=== PATIENT | female | born 1990 | race Caucasian/White ===

== ENCOUNTER 2017-02-15 00:07 | Inpatient (IN) | payer OTHER ==
[2017-02-15] MEDS ORDERED: Lidocaine 1% 50 ML MDV INJECT PRN (00:55)
[2017-02-15] MEDS ORDERED: Nalbuphine 20 MG/1 ML Amp IVPUSH PRN (00:55)
[2017-02-15] MEDS ORDERED: Sodium Chloride 0.9% 10 ML Syringe FLUSH PRN ×2 (00:55→09:34)
[2017-02-15] MEDS ORDERED: Oxytocin/Lactated Ringers 10 UNIT/1,000 ML BAG IV SCH ×2 (01:00→06:45)
[2017-02-15] MEDS: Lactated Ringers 1,000 ML IV SCH ×3 (03:30→06:21)
[2017-02-15] MEDS ORDERED: Bupivacaine/fentaNYL/NS 100 ML Bag EPIDUR SCH (05:15)
--- NOTE | 2017-02-15 05:15 | PCM.PREANE ---
Preanesthetic Assessment - Procedure Proposed Procedure: Continuous Labor Epidural - Anesthesia/Transfusion/Family Hx Anesthesia History: Prior Anesthesia Reaction Other Type of Anesthesia Reaction Comment: Pt states "was hard to wake up after 2008 surgery"Possible high spinal with - Review of Systems General: No Symptoms Pulmonary: No Symptoms Cardiovascular: Lightheadedness (some with this ) Gastrointestinal: No symptoms Neurological: Dizziness (with this sometimes) Other: Reports: None - Physical Assessment O2 Sat by Pulse Oximetry: 100 Respiratory Rate: 18 Vital Signs: Last Vital Signs Temp 36.3 C 02/15/17 00:47 Pulse 93 02/15/17 00:47 Resp 18 02/15/17 00:47 BP 97/61 02/15/17 00:47 Pulse Ox Height: 1.63 m Weight: 85.275 kg ASA Class: 2 Mental Status: Alert & Oriented x3 Dentition: Reports: Broken Tooth/Teeth (chip upper front) Thyro-Mental Finger Breadths: 3 Mouth Opening Finger Breadths: 3 ROM/Head Extension: Full Lungs: Clear to auscultation, Normal respiratory effort Cardiovascular: Regular Rate, Regular Rhythm, No Murmurs - Lab Values: Laboratory Last Values WBC 10.34 K/mm3 (3.98-10.04) H 02/15/17 01:18 RBC 4.50 M/mm3 (3.98-5.22) 02/15/17 01:18 Hgb 12.2 gm/L (11.2-15.7) 02/15/17 01:18 Hct 37.2 % (34.1-44.9) 02/15/17 01:18 MCV 82.7 fl (79.4-94.8) 02/15/17 01:18 MCH 27.1 pg (25.6-32.2) 02/15/17 01:18 MCHC 32.8 g/dl (32.2-35.5) 02/15/17 01:18 RDW Std Deviation 41.6 fL (36.4-46.3) 02/15/17 01:18 Plt Count 346 K/mm3 (182-369) 02/15/17 01:18 MPV 9.6 fl (9.4-12.3) 02/15/17 01:18 Neut % (Auto) 71.9 % (34.0-71.1) H 02/15/17 01:18 Lymph % (Auto) 17.7 % (19.3-51.7) L 02/15/17 01:18 Wayne % (Auto) 8.6 % (4.7-12.5) 02/15/17 01:18 Eos % (Auto) 1.4 (0.7-5.8) 02/15/17 01:18 Baso % (Auto) 0.2 % (0.1-1.2) 02/15/17 01:18 Neut # (Auto) 7.44 K/mm3 (1.56-6.13) H 02/15/17 01:18 Lymph # (Auto) 1.83 K/mm3 (1.18-3.74) 02/15/17 01:18 Wayne # (Auto) 0.89 K/mm3 (0.24-0.36) H 02/15/17 01:18 Eos # (Auto) 0.14 K/mm3 (0.04-0.36) 02/15/17 01:18 Baso # (Auto) 0.02 K/mm3 (0.01-0.08) 02/15/17 01:18 Blood Type A POSITIVE 02/15/17 01:18 Gel Antibody Screen Negative 02/15/17 01:18 - Allergies Allergies/Adverse Reactions: Allergies Allergy/AdvReac Type Severity Reaction Status Date / Time No Known Allergies Allergy Verified 10/11/14 00:43 - Acknowledgements Anesthesia Type Planned: Epidural Pt an Appropriate Candidate for the Planned Anesthesia: Yes Alternatives and Risks of Anesthesia Discussed w Pt/Guardian: Yes Pt/Guardian Understands and Agrees with Anesthesia Plan: Yes PreAnesthesia Questionnaire HEENT History: Reports: None Genitourinary History: Reports: None 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: - Past Surgical History HEENT Surgical History: Reports: Oral Surgery Other HEENT Surgeries/Procedures: wisdom teeth 2008 Female Surgical History: Reports: Section Other Female Surgeries/Procedures: 2011 - SUBSTANCE USE Smoking Status *Q: Current Every Day Smoker (1 pack per week) Tobacco Use Within Last Twelve Months: Cigarettes Second Hand Smoke Exposure: Yes Days Per Week of Alcohol Use: 0 Recreational Drug Use History: No - HOME MEDS Home Medications: Home Meds Vits #93/Iron Fum/FA [ Formula Tablet] 1 tab PO DAILY 05/15/14 [History] - CURRENT (IN HOUSE) MEDS Current Meds: Current Medications Lactated Ringer's (Ringers, Lactated) 1,000 mls @ 100 mls/hr IV ASDIRECTED [facility] Last Admin: 02/15/17 04:58 Dose: 125 mls/hr Oxytocin/Lactated Ringer's (Pitocin In Lr 10 Units/1,000 Ml) 10 unit in 1,000 mls @ 100 mls/hr IV ASDIRECTED [facility] Lidocaine HCl (Xylocaine 1%) 50 ml INJECT ASDIRECTED PRN PRN Reason: Other Nalbuphine HCl (Nubain) 10 mg IVPUSH Q2H PRN PRN Reason: Pain (moderate 4-6) Sodium Chloride (Saline Flush) 10 ml FLUSH ASDIRECTED PRN PRN Reason: Keep Vein Open
[2017-02-15] MEDS ORDERED: Aluminum Hydroxide/Magnesium Hydroxide/Simethicone Susp 30 ML Cup PO ONE (06:40)
--- NOTE | 2017-02-15 07:38 | HP ---
DATE OF ADMISSION: 02/15/2017 ADMISSION DIAGNOSIS: A 39 and 4/7th week intrauterine , active labor, history of previous section with desire for vaginal after . HISTORY OF PRESENT ILLNESS: The patient is a 26-year-old 3, para 2-0-0-2 white female who wishes to do a natural labor after having 1 successful . Her first was delivered by section for failure to progress. She at this time is in labor azam approximately every 3 minutes, moderate intensity, and has dilated since her last evaluation clinic. heart tones are generally reassuring with good variability and some early decelerations. The , it risks, benefits, alternatives of care including a repeat section are all discussed in detail with the patient. She wishes to proceed and is willing to go through the cautionary preparation steps in case of emergent section is needed. She has signed a consent for and has signed a consent for repeat section. 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 She has a history of very irregular cycles coming anywhere from every 30 to every 45 days. Her last period of 05/08/2016 was definite, but because of the irregularity of cycle, the MICHELE is set by 1st ultrasound. She was not using any control at the time of conception. She had menarche at age 13. Cycles last approximately 5 days. Her last delivery includes the followin. Male infant born 06/25/2011 at 39 weeks gestational age after 10 hours of labor-7 pounds, 2 ounces-primary section done in [place], [place] for failure to progress. Child's name is Pedro. 2. Female infant born 10/[birth year]/2014 at 40 and 2/7th weeks gestational age after 72 hours of labor-8 pounds and 7 ounces-normal spontaneous vaginal delivery- in [place]-child's name is Cheng Mann. COURSE: The patient declined genetic testing. Her [place] Depression Screen Score on 09/26/2016 was 0-normal. She is group B strep negative. She plans to breastfeed. She is interested in an epidural in Labor and Delivery. Tdap was given on 12/08/2014. The patient did have bacterial vaginosis during the course of her care. Her course was regular starting with a 1st visit on 07/20/2016 at 9 and 4/7th weeks. She was seen on a very regular basis. Her weight decreased from 197 pounds at first leonardo visit to 188 pounds. Her fundal height growth was appropriate and her vital signs were stable. On last evaluation in clinic, she was 3 cm, 90% effaced, very soft, -1, midposition. LABORATORY DATA: Laboratory testing in shows blood to be A+ with a negative antibody screen. First labs showed a hemoglobin of 14.2 and a platelet count of 238,000. She is rubella immune. RPR is nonreactive. Urine culture was negative. Hepatitis B and HIV assays were negative. Chlamydia and gonorrhea were both negative. Second trimester testing showed a hemoglobin of 11.9, at which time, she was started on iron therapy. Her platelets were 239,000. Her 1 hour glucose tolerance test was 80-normal. Group B strep screen was negative. ALLERGIES: None. CURRENT MEDICATIONS: 1. vitamins 1 daily. 2. Ferrous sulfate daily. PAST MEDICAL HISTORY: 1. Vaginal delivery- 10/13/2014. 2. Abnormal Pap smear in 2011, which was normal on repeat. PAST SURGICAL HISTORY: 1. 2011 for [id number]-[id number] and nonreassuring heart tones. 2. [place] teeth extraction. FAMILY HISTORY: Paternal grandmother with some type of degenerative muscle disease. Maternal grandmother otherwise without -related problems. There are twins reported in family. Mother's history otherwise is not well-known and father is alive and well. No bleeding, blood clotting, or anesthesia problems noted other than the patient had a slow time waking up after anesthesia. SOCIAL HISTORY: The patient is . is Julian Galdamez. The patient is a [id number] mom. She lives in [place], [place]. She does not use any significant amounts of alcohol, drugs, or tobacco. REVIEW OF SYSTEMS: SKIN: Negative. CARDIOVASCULAR: No chest pain or exercise intolerance. RESPIRATORY: No shortness of breath, infectious symptoms, or asthma at this time. 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 GI: Negative. : Findings consistent with with normal fundal height growth. MUSCULOSKELETAL: Some edema noted in on occasion. NEUROLOGIC: Negative. PHYSICAL EXAMINATION: VITAL SIGNS: On evaluation, 02/13/2017, the patient's blood pressure is 112/70, weight was 188, heart rate was 142, her height is 5 feet, 4 inches, pregravid weight was 205 pounds-body mass index was 35.2. GENERAL: The patient is a well-developed, well-nourished, pleasant female, stated age, in no acute distress. She is alert, oriented x2 and appears to be reasonable historian. SKIN: Warm, dry, without lesions. LUNGS: Clear with good breath sounds in all lung wiggins. CARDIOVASCULAR: Shows regular rate and rhythm without murmurs. LUNGS: Clear with good breath sounds in all lung wiggins. BREASTS: Exam is deferred having been done at first visit and found to be normal. ABDOMEN: Protuberant with with fundal height of 39 cm on last evaluation. : Cervix is 3 cm/90% effaced/very soft/-1 and midposition on last evaluation, the patient now has dilated to 4 to 5 cm. EXTREMITIES: Show no significant edema. NEUROLOGICAL: Exam is within normal limits. ASSESSMENT: 1. Term intrauterine at 39 and 4/7th weeks gestational age by early ultrasound dating. 2. History of previous section for [id number]-md-dwkvhqtk and nonreassuring heart tones-now has successfully vaginal after and desires to vaginal after with this . 3. Group B strep screen is negative. 4. The patient wishes to use epidural in Labor and Delivery. 5. Tdap is up-to-date. 6. The patient declined genetic testing. 7. Blood is A+. PLAN: 1. Anticipate delivery. 2. The attempt, its risks, benefits, precautions to be taken and potential intervention if abnormalities occur all discussed in detail with the patient. She appears to understand. It has been reviewed with her approximately 2-3 occasions during her course and the patient has now signed a consent for and for repeat section. 3. labs to be obtained including CBC, type and screen. 4. Near continuous monitoring to be undertaken during labor. 5. Anesthesia and Surgery have been alerted that the patient is in labor as a candidate. 6. Epidural p.r.n. 7. Support decision. MMCOX MONETT /[id number]
[2017-02-15] MEDS ORDERED: Bupivacaine 0.5% 30 ML SDV ONE (08:00)
[2017-02-15] MEDS ORDERED: Citric Acid/Sodium Citrate Solution 30 ML Cup PO ONE (08:02)
[2017-02-15] MEDS ORDERED: Metoclopramide 10 MG/2 ML SDV IVPUSH ONE (08:02)
[2017-02-15] MEDS ORDERED: ceFAZolin 2 GM in Premix Bag 1 BAG IV ONE (08:02)
[2017-02-15] MEDS ORDERED: Metoclopramide 10 MG/2 ML SDV ONE (08:02)
[2017-02-15] MEDS ORDERED: Citric Acid/Sodium Citrate Solution 30 ML Cup ONE (08:03)
--- NOTE | 2017-02-15 08:04 | PCM.SN ---
- Free Text/Narrative Note: The patient has been laboring since approximately midnight here in the hospital. Her contraction pattern was suboptimal. Patient is having early decelerations but with good variability. Good return to baseline. The contraction pattern picked up with Pitocin 1 milliunit to achieve a more optimal pattern. Patient's decelerations that appeared to be lengthening and with occasional late components. At this time feel that a model labor necessary to move her from the 7-8 cm dilation that she is to complete and delivered may be more than the baby will tolerate. I discussed with her repeat section. Procedure, risks, benefits, follow-up and alternatives discussed. She appears understanding and wishes to proceed. She is previously signed a consent. We'll proceed to emergent section.
[2017-02-15] MEDS ORDERED: Oxytocin 10 Units/1 ML SDV ONE (08:16)
[2017-02-15] MEDS ORDERED: ceFAZolin 1 GM Vial ONE (08:16)
[2017-02-15] MEDS ORDERED: Ondansetron 4 MG/2 ML SDV ONE (08:16)
[2017-02-15] MEDS ORDERED: Phenylephrine/Normal Saline 100 MCG/ML 10 ML Syringe ONE (08:24)
[2017-02-15] MEDS ORDERED: Lactated Ringers 1,000 ML ONE ×2 (08:33→08:44)
[2017-02-15] MEDS ORDERED: Ketorolac 30 MG/ML SDV ONE (08:33)
[2017-02-15] MEDS ORDERED: Morphine PF 10 MG/10 ML SDV ONE (08:34)
[2017-02-15] MEDS ORDERED: ePHEDrine/Normal Saline 25 MG/5 ML Syringe ONE (08:50)
[2017-02-15] MEDS ORDERED: Lidocaine 2% with EPINEPHrine 1:200,000 20 ML SDV ONE (08:50)
--- NOTE | 2017-02-15 09:02 | PCM.OPNOTE ---
- General Post-Op/Procedure Note Date of Surgery/Procedure: 02/15/17 Operative Procedure(s): Repeat lower uterine segment transverse section through Pfannenstiel skin incision Findings: Baby is in vertex presentation. Uterus tubes and ovaries consistent with normal term anatomy. Amniotic fluid was clear. Some scarring noted in the anterior lower uterine segment and anterior abdominal wall areas. Pre Op Diagnosis: 39 week intrauterine , nonreassuring heart tones, history of previous section Post-Op Diagnosis: Same with delivery of viable, 7 lbs. 10 oz., female with Apgars of 9 and 9 at 00 21 hours on 02/15/2017. Anesthesia Technique: Epidural Other Anesthesia Type: Marcaine 0.5%20 mLlocal Primary Surgeon: Caio Parson Secondary Surgeon: Troy Tan Anesthesia Provider: Nadine Bartlett Fluid Replacement, Intraop: 800 Output, Urine Amount: 250 EBL in mLs: 500 Drain/Tube Comments:: Indwelling bladder catheter Complications: None Condition: Good Free Text/Narrative:: Intake & Output 02/14/17 02/15/17 02/15/17 22:59 06:59 14:59 Intake Total 1000 Balance 1000 Surgery duration: 31 minutes Patient was transferred the room and placed in a sitting position. After confirmation of adequate anesthesia patient was placed in a supine position with a wedge under her right side to facilitate left lateral positioning. The patient was prepped and draped in usual fashion after Lees catheter was already placed . The anesthetic was checked and found to be adequate. The Pfannenstiel skin incision was then made carried down to skin subcutaneous and fascial layers. The fascia was then undermined superiorly and inferiorly to allow for adequate operating room the recti muscles midline and preperitoneal fat was bluntly dissected. Peritoneal cavity was entered longitudinally. The vesicouterine peritoneum was then incised transversely and bladder flap was developed. Myometrium was incised transversely to the level of the amniotic sac. This incision was extended bilaterally in a blunt fashion. The anesthetic was then ruptured resulting clear amniotic fluid. A hand is placed and low uterine segment and the baby's head was brought forth through the incision. The baby was completely delivered using fundal pressure in a routine fashion. The nose and mouth were bulb suctioned. Bays cord was clamped x2 cut and baby was handed off to attending glass handler Dr Marroquin. Placenta was expressed after cord blood was obtained. Uterus was then exteriorized to allow for easier closure. The cervix was assessed and found to be dilated adequately to allow egress of blood. The uterus was closed in 2 layers. The first layer a running locked suture of 0 Monocryl, the second layer a running locked vertical mattress suture of 0 Monocryl. Agcvkv-qd-toevu suture was placed at the left incision to control 1 bleeder. Hemostasis confirmed at this time. Sponge instrument needle counts are correct. The uterus was returned to the abdominal cavity and lateral gutters were cleared of blood. Once again sponge needle counts are correct. The anterior abdominal wall was closed with a #1 PDS suture from angle to angle. The subcutaneous area was found to be free of any bleeders. Skin was closed with a running subcuticular stitch of 3-0 Monocryl in a vertical mattress suture fashion using a Zachariah needle. Prineo mesh/glue was then applied to further approximate the incision. It should be noted that patient received 2 g of Ancef preoperatively for infection prophylaxis and had Pitocin infused after delivery of the placenta to facilitate uterine contraction. She also had sequential compression stockings in place for DVT prophylaxis. Patient was discharged from the operating room in satisfactory condition.
[2017-02-15] MEDS ORDERED: Sodium Chloride 0.9% 100 ML ONE (09:03)
--- NOTE | 2017-02-15 09:27 | PCM.POSTAN ---
POST ANESTHESIA ASSESSMENT - MENTAL STATUS Mental Status: alert - VITAL SIGNS Pulse Rate: 60 SaO2: 99 Resp Rate: 11 Blood Pressure: 96/54 Temperature: 36.0 C - RESPIRATORY Respiratory Status: respiratory rate WNL, airway patent, O2 saturation stable, supplemental oxygen - CARDIOVASCULAR CV Status: pulse rate WNL, blood pressure stable - GASTROINTESTINAL GI Status: no symptoms - POST OP HYDRATION Hydration Status: adequate & stable (Patient presents to PACU, c/o tingling in hands. PACU nurse instructed along with OB nurse to keep HOB elevated until hands return to normal untingly state. Epidural still in place, awaiting for epidural level to reside and then astromorph 4 mg will be injected via epidural catheter.) - OBSERVATIONS Free Text/Narrative:: Patient present to PACU with c/o tingling to bilateral hands. PACU nurse and OB nurse instructed to keep HOB elevated until tingling resolves in hands. Epidural catheter still in place, with no morphine administered at this time. Plan to administer morphine after epidural resolves and hands are no longer tingly. Patient calm, comfortable, and resting quietly.
[2017-02-15] MEDS ORDERED: ePHEDrine 50 MG/ML SDV IVPUSH PRN ×2 (09:33→09:34)
[2017-02-15] MEDS ORDERED: diphenhydrAMINE 50 MG/ML SDV IVPUSH PRN ×2 (09:33→09:34)
[2017-02-15] MEDS ORDERED: Ondansetron 4 MG/2 ML SDV IVPUSH PRN (09:33)
[2017-02-15] MEDS ORDERED: Ondansetron 4 MG/2 ML SDV IV PRN (09:34)
[2017-02-15] MEDS ORDERED: Lanolin 100% Cream 7 GM Tube TOP PRN (09:34)
[2017-02-15] MEDS ORDERED: Bupivacaine 0.25% 10 ML SDV ONE (09:34)
[2017-02-15] MEDS ORDERED: Dextrose 5%-0.45% NaCl 1,000 ML IV SCH (09:34)
[2017-02-15] MEDS ORDERED: Dextrose 5%-Lactated Ringers 1,000 ML IV SCH (09:34)
[2017-02-15] MEDS ORDERED: Naloxone 0.4 MG/ML SDV IVPUSH PRN (09:34)
[2017-02-15] MEDS ORDERED: Phenylephrine 1 MG in Sodium Chloride 0.9% 10 ML IV SCH (09:45)
[2017-02-15] MEDS: Prenatal Multivitamin with Calcium/Folic Acid/Iron Tab PO SCH (11:04)
[2017-02-15] MEDS: Acetaminophen/oxyCODONE 325-5 MG Tab PO PRN ×2 (13:53→20:12)
[2017-02-15] MEDS: Ibuprofen 800 MG Tab PO PRN (18:18)
[2017-02-16] MEDS: Acetaminophen/oxyCODONE 325-5 MG Tab PO PRN ×6 (00:18→22:49)
[2017-02-16] MEDS: Ibuprofen 800 MG Tab PO PRN ×3 (03:05→21:00)
--- NOTE | 2017-02-16 08:14 | PCM48HPAN ---
Post Anesthesia Note - EVALUATION WITHIN 48HRS OF ANESTHETIC Vital Signs in Normal Range: Yes Patient Participated in Evaluation: Yes Respiratory Function Stable: Yes Airway Patent: Yes Cardiovascular Function Stable: Yes Hydration Status Stable: Yes Pain Control Satisfactory: Yes Nausea and Vomiting Control Satisfactory: Yes Mental Status Recovered: Yes
[2017-02-16] MEDS: Prenatal Multivitamin with Calcium/Folic Acid/Iron Tab PO SCH (09:23)
[2017-02-16] MEDS: Docusate Sodium 100 MG Cap PO PRN ×2 (10:45→21:00)
[2017-02-17] MEDS: Acetaminophen/oxyCODONE 325-5 MG Tab PO PRN (03:05)
[2017-02-17] MEDS: Ibuprofen 800 MG Tab PO PRN (06:35)
--- NOTE | 2017-02-17 06:50 | PCM.DCSUM1 ---
Discharge Summary - Hospital Course Free Text/Narrative:: Zahira is a 26-year-old 3 now para 3003 white female who was admitted 2 days ago for at the attempt at . Progressed to approximately 7-8 cm and began having severe able decelerations. Decision was made to proceed to section for nonreassuring heart tones in light of the fact that she had had a previous section. Please see operative report for details. She underwent a repeat lower segment transverse section under regional block with epidural. She delivered a 7 lbs. 10 oz. female with Apgars of 9 and 9 at 0821 hours on 02/15/2017. Post operatively patient has done well. She is nursing without problems. She is ambulating well, has pain under good control. She has minimal lochia. Incision is dry and intact. Her vital signs been stable and she has been afebrile. Patient is desiring discharge today. - Discharge Data Discharge Date: 02/17/17 Discharge Disposition: Home, Self-Care 01 Condition: Good - Patient Summary/Data Operative Procedure(s) Performed: Repeat lower uterine segment transverse section through Pfannenstiel skin incision - Patient Instructions Diet: Regular Diet as Tolerated (Nursing diet was increased calories and calcium as recommended) Activity: As Tolerated (No intercourse or tampons until seen back. No lifting greater than 15 pounds or driving a car 1 week) Driving: May Drive Today Showering/Bathing: May Shower Wound/Incision Care: Keep Operative Site/Wound Site Clean and Dry Notify Provider of: Fever, Increased Pain, Swelling and Redness, Drainage, Nausea and/or Vomiting - Discharge Plan Home Medications: Home Meds Vits #93/Iron Fum/FA [ Formula Tablet] 1 tab PO DAILY 05/15/14 [History] Acetaminophen/oxyCODONE [Percocet 325-5 MG] 2 tab PO Q4H PRN #30 tablet [Rx] Ibuprofen [IJD: Ibuprofen] 600 mg PO Q4H PRN #30 tablet 02/17/17 [Rx] Patient Handouts: Smoking Hazards, Smoking Cessation, Tips for Success Referrals: Caio Parson MD [Primary Care Provider] - [facility] - Discharge Summary/Plan Comment DC Time >30 min.: No Discharge Summary/Plan Comment: Discharge instructions: 1. Discharge home. 2. Regular, high fiber, nursing diet with increased calories and calcium. 3. Precautions given concern increased pain, bleeding, temperature, signs/ symptoms of DVT/PE. 4. Medications per home medication was printed, discussed with and given to the patient. 5. Return to [facility]. Diagnosis: 1. 40+ week intrauterine -delivered 2. Vaginal after section attempt unsuccessful-nonreassuring heart tones. Condition: Good - Patient Data Vitals - Most Recent: Last Vital Signs Temp 37.3 C 02/17/17 03:09 Pulse 58 L 02/17/17 03:09 Resp 15 02/17/17 03:09 BP 102/60 02/17/17 03:09 Pulse Ox 98 02/17/17 03:09 Weight - Most Recent: 85.275 kg I&O - Last 24 hours: Intake & Output 02/16/17 02/16/17 02/17/17 14:59 22:59 06:59 Intake Total 240 Balance 240 Lab Results - Last 24 hrs: Laboratory Results - last 24 hr 02/16/17 Range/Units 06:00 WBC 7.78 (3.98-10.04) K/mm3 RBC 4.25 (3.98-5.22) M/mm3 Hgb 11.4 (11.2-15.7) gm/L Hct 35.8 (34.1-44.9) % MCV 84.2 (79.4-94.8) fl MCH 26.8 (25.6-32.2) pg MCHC 31.8 L (32.2-35.5) g/dl RDW Std Deviation 43.1 (36.4-46.3) fL Plt Count 318 (182-369) K/mm3 MPV 10.3 (9.4-12.3) fl Neut % (Auto) 62.5 (34.0-71.1) % Lymph % (Auto) 21.0 (19.3-51.7) % Blount % (Auto) 14.1 H (4.7-12.5) % Eos % (Auto) 1.8 (0.7-5.8) Baso % (Auto) 0.3 (0.1-1.2) % Neut # (Auto) 4.87 (1.56-6.13) K/mm3 Lymph # (Auto) 1.63 (1.18-3.74) K/mm3 Blount # (Auto) 1.10 H (0.24-0.36) K/mm3 Eos # (Auto) 0.14 (0.04-0.36) K/mm3 Baso # (Auto) 0.02 (0.01-0.08) K/mm3 Med Orders - Current: Current Medications Diphenhydramine HCl (Benadryl) 25 mg IVPUSH Q6H PRN PRN Reason: Itching or Nausea Last Admin: 02/15/17 13:54 Dose: 25 mg Diphenhydramine HCl (Benadryl) 25 mg IVPUSH Q6H PRN PRN Reason: pruritis Docusate Sodium (Colace) 100 mg PO BID PRN PRN Reason: Constipation Last Admin: 02/16/17 21:00 Dose: 100 mg Emollient Ointment (Lansinoh Hpa) 0 gm TOP ASDIRECTED PRN PRN Reason: Sore Nipples Ephedrine Sulfate (Ephedrine Sulfate) 5 mg IVPUSH SEECOMMENT PRN PRN Reason: Other Ephedrine Sulfate (Ephedrine Sulfate) 5 mg IVPUSH ASDIRECTED PRN PRN Reason: Hypotension Dextrose/Sodium Chloride (Dextrose 5%-1/2 Ns) 1,000 mls @ 125 mls/hr IV ASDIRECTED CALVIN Last Admin: 02/15/17 18:27 Dose: 125 mls/hr Phenylephrine HCl 1 mg/ Sodium (Chloride) 10.1 mls @ 1 mls/sec IV TITRATE CALVIN Ibuprofen (Motrin) 800 mg PO Q8H PRN PRN Reason: mild pain or fever Last Admin: 02/17/17 06:35 Dose: 800 mg Naloxone HCl (Narcan) 0.1 mg IVPUSH SEECOMMENT PRN PRN Reason: Respiratory Depression Ondansetron HCl (Zofran) 4 mg IV Q4H PRN PRN Reason: Nausea/Vomiting Ondansetron HCl (Zofran) 4 mg IVPUSH ONETIME PRN PRN Reason: Nausea/Vomiting Oxycodone/Acetaminophen (Percocet 325-5 Mg) 2 tab PO Q4H PRN PRN Reason: Pain (moderate 4-6) Last Admin: 02/17/17 03:05 Dose: 2 tab Prenat Multivit/[place]/Iron/Folic Ac ( Plus Iron) 1 each PO DAILY [facility] Last Admin: 02/16/17 09:23 Dose: 1 each Sodium Chloride (Saline Flush) 10 ml FLUSH ASDIRECTED PRN PRN Reason: Keep Vein Open Discontinued Medications Al Hydroxide/Mg Hydroxide (Mag-Al Plus) 30 ml PO ONETIME ONE Stop: 02/15/17 06:41 Last Admin: 02/15/17 06:54 Dose: 30 ml Bupivacaine HCl (Marcaine 0.5%) Confirm Administered Dose 30 ml .ROUTE .STK-MED ONE Stop: 02/15/17 08:01 Last Admin: 02/15/17 08:15 Dose: 20 ml Cefazolin Sodium (Ancef) Confirm Administered Dose 2 gm .ROUTE .STK-MED ONE Stop: 02/15/17 08:17 Citric Acid/Sodium Citrate (Bicitra Solution) 30 ml PO ONETIME ONE Stop: 02/15/17 08:03 Last Admin: 02/15/17 08:02 Dose: 30 ml Citric Acid/Sodium Citrate (Bicitra Solution) Confirm Administered Dose 30 ml .ROUTE .STK-MED ONE Stop: 02/15/17 08:04 Last Admin: 02/15/17 11:05 Dose: Not Given Ephedrine Sulfate (Ephedrine In Ns) Confirm Administered Dose 25 mg .ROUTE .STK- MED ONE Stop: 02/15/17 08:51 Fentanyl/Bupivacaine HCl (Fentanyl/Bupivacaine/Ns 2 Mcg-0.125% 100 Ml) 100 ml EPIDUR ASDIRECTED [facility] Last Admin: 02/15/17 05:46 Dose: 100 ml Lactated Ringer's (Ringers, Lactated) 1,000 mls @ 100 mls/hr IV ASDIRECTED [facility] Last Admin: 02/15/17 06:21 Dose: 125 mls/hr Oxytocin/Lactated Ringer's (Pitocin In Lr 10 Units/1,000 Ml) 10 unit in 1,000 mls @ 100 mls/hr IV ASDIRECTED [facility] Oxytocin/Lactated Ringer's (Pitocin In Lr 10 Units/1,000 Ml) 10 unit in 1,000 mls @ 6 mls/hr IV TITRATE CALVIN; 1 MUNITS/MIN PRN Reason: Protocol Last Titration: 02/15/17 07:50 Dose: 0 munits/min, 0 mls/hr Cefazolin Sodium/Dextrose 2 gm (/ Premix) 50 mls @ 100 mls/hr IV ONETIME ONE Stop: 02/15/17 08:31 Last Admin: 02/15/17 12:11 Dose: Not Given Lactated Ringer's (Ringers, Lactated) Confirm Administered Dose 1,000 mls @ as directed .ROUTE .STK-MED ONE Stop: 02/15/17 08:34 Lactated Ringer's (Ringers, Lactated) Confirm Administered Dose 1,000 mls @ as directed .ROUTE .STK-MED ONE Stop: 02/15/17 08:45 Sodium Chloride (Normal Saline) Confirm Administered Dose 100 mls @ as directed .ROUTE .STK-MED ONE Stop: 02/15/17 09:04 Dextrose/Lactated Ringer's (Dextrose 5%-Lactated Ringers) 1,000 mls @ 125 mls/ hr IV ASDIRECTED [facility]VIN Stop: 02/15/17 17:33 Last Admin: 02/15/17 13:34 Dose: 125 mls/hr Ketorolac Tromethamine (Toradol) Confirm Administered Dose 30 mg .ROUTE .STK- MED ONE Stop: 02/15/17 08:34 Lidocaine HCl (Xylocaine 1%) 50 ml INJECT ASDIRECTED PRN PRN Reason: Other Lidocaine/Epinephrine (Xylocaine-Mpf 2%-Epi 1:200,000) Confirm Administered Dose 20 ml .ROUTE .STK-MED ONE Stop: 02/15/17 08:51 Metoclopramide HCl (Reglan) 10 mg IVPUSH ONETIME ONE Stop: 02/15/17 08:03 Last Admin: 02/15/17 08:02 Dose: 10 mg Metoclopramide HCl (Reglan) Confirm Administered Dose 10 mg .ROUTE .STK-MED ONE Stop: 02/15/17 08:03 Last Admin: 02/15/17 11:05 Dose: Not Given Morphine Sulfate (Duramorph Pf) Confirm Administered Dose 10 mg .ROUTE .STK-MED ONE Stop: 02/15/17 08:35 Nalbuphine HCl (Nubain) 10 mg IVPUSH Q2H PRN PRN Reason: Pain (moderate 4-6) Ondansetron HCl (Zofran) Confirm Administered Dose 4 mg .ROUTE .STK-MED ONE Stop: 02/15/17 08:17 Oxytocin (Pitocin) Confirm Administered Dose 20 unit .ROUTE .STK-MED ONE Stop: 02/15/17 08:17 Phenylephrine HCl (Phenylephrine In Ns 100 Mcg/Ml) Confirm Administered Dose 1 mg .ROUTE .STK-MED ONE Stop: 02/15/17 08:25 Sodium Chloride (Saline Flush) 10 ml FLUSH ASDIRECTED PRN PRN Reason: Keep Vein Open *Q Meaningful Use (DIS) - VTE *Q VTE Criteria *Q: - Stroke *Q Stroke Criteria *Q: - AMI *Q AMI Criteria *Q:
[2017-02-17 13:50] VITALS: BP 110/64
== END 2017-02-17 09:20 | disposition home or self-care (01) | DRG 766 ==
LOC: JD.OB 00:07 → JD.OBCHECK 00:07 → JD.OB 00:56 → OBSVTOIN 08:21 → JD.OB 08:21
PROVIDERS: ADMIT Obstetrics & Gynecology; ATTEND Obstetrics & Gynecology
PROC: 10D00Z1 Extraction of Products of Conception, Low, Open Approach (ICD-10-PCS; principal; 2017-02-15)
PROC: 00HU33Z Insertion of Infusion Device into Spinal Canal, Percutaneous Approach (ICD-10-PCS; 2017-02-15)
PROC: 3E0R3CZ (ICD-10-PCS; 2017-02-15)
DX: O34.211 Maternal care for low transverse scar from previous cesarean delivery (principal); N85.8 Other specified noninflammatory disorders of uterus; O76 Abnormality in fetal heart rate and rhythm complicating labor and delivery; Z3A.40 40 weeks gestation of pregnancy; Z37.0 Single live birth
CPT/HCPCS: 01967; 01968; 36415; 85025; 86850; 86900; 86901; 94762; A9270-GY; J0690; J1200; J1885; J2270; J2405; J2590; J2765; J7030; J7042; J7050; J7120